=== PATIENT | male | born 1960 | race Caucasian/White ===

== ENCOUNTER → 2016-11-25 | Outpatient (CLI) | payer OTHER ==
[~2016-11-25] MED LIST: CALTRATE-600 W600 MG PO; DELTASONE DPS2.5 MG PO; IMMUNE PO; LASIX DPS20 MG PO; MELATONIN10 M2 PO; MICRO-K DPS10 MEQ PO; NEURONTIN DPS100 MG PO; NORCO 5-325 TA1 EACH PO; PLAQUENIL DPS200 MG PO; TURMERIC500 MG PO; TYLENOL DPS325 MG PO; VITAMIN D31000 UNIT PO; ZYLOPRIM-DPS300 MG PO; [UNRECOGNIZED DRUG - OTHER] PO
== END | disposition home or self-care (01) ==
LOC: RAD.S 09:32 → EDSTATUS 10:00
DX: C20 Malignant neoplasm of rectum (principal); N32.89 Other specified disorders of bladder; Z98.890 Other specified postprocedural states

== ENCOUNTER 2016-12-23 10:21 | Day surgery (SDC) | payer OTHER ==
[~2016-12-23] VITALS: Ht 177.8 cm; Wt 94.0 kg
--- NOTE | 2017-01-20 10:12 | OR ---
ADMIT: 12/23/2016 RM/LOC: [facility] MR#: [id number] [facility] [address] [place] [id number] [address]ES[address] [place] [address] Operative/Delivery Room Report SEX: M AGE: 56 : 1960 SURGERY DATE: 12/23/2016 SURGEON: Idris Hollis MD PREOPERATIVE DIAGNOSIS: Bladder calculi x3. POSTOPERATIVE DIAGNOSIS: Bladder calculi x3. PROCEDURE: Cystoscopy with laser lithotripsy of bladder calculi. ANESTHESIA: General. INDICATION: The patient is a pleasant white male, who has a history of elevated urinary residuals. He had a prolonged Roberto catheter. Recent cystoscopy demonstrated some bladder calculi, flat appeared to be calcifications associated with Roberto catheter. I need to have these removed. Risks and benefits have been discussed. Preoperative antibiotics were given. DESCRIPTION OF PROCEDURE: The patient was taken to OR #5, placed on the table in supine position. After adequate anesthesia, transferred to dorsal lithotomy position, prepped and draped in the usual fashion. A time-out was taken confirming patient name, date of , planned procedure, preoperative antibiotics and allergies. A 22-[place] cystoscope with 30-degree lens advanced to the level of bladder. The urethra and prostate were unremarkable. Upon entering the bladder, three bladder calculi which are flat and rather thin are noted within the bladder. A 400-micron holmium laser fiber with settings of 800 mJ and 8 Hz was then used to fragment the stones which fragmented very nicely. All stone fragments were evacuated from the bladder and sent for pathological analysis. On final inspection, there was no active bleeding. The ureteral orifice was visualized, in normal position. No residual stone fragments were noted. No ADMIT: 12/23/2016 RM/LOC: [facility] MR#: [id number] [address] [facility] [address] [place] [id number] [address]ES[address] [place] [address] Operative/Delivery Room Report SEX: M AGE: 56 : 1960 other mucosal lesions identified at this time. The bladder was decompressed. The scope was withdrawn. The patient was taken out of dorsal lithotomy position, extubated uneventfully, and transferred to recovery room in stable condition. DISPOSITION: The patient will be discharged home later on today. DISCHARGE MEDICATIONS: Include Omnicef 300 mg p.o. b.i.d. for the next 5 days and then restart trimethoprim antibiotic suppression. I will have the patient back in three months for followup urinalysis and residual check. Idris Hollis MD/ harman JOB #: [id number] CC: Idris Hollis, Attending Physician Kvng Marx, Family Physician
== END 2016-12-23 14:15 | disposition home or self-care (01) ==
LOC: SSS 10:21
PROC: 0TCB8ZZ Extirpation of Matter from Bladder, Via Natural or Artificial Opening Endoscopic (ICD-10-PCS; principal; 2016-12-23)
DX: N21.0 Calculus in bladder (principal); Z87.891 Personal history of nicotine dependence; Z98.890 Other specified postprocedural states; Z85.048 Personal history of other malignant neoplasm of rectum, rectosigmoid junction, and anus; Z79.899 Other long term (current) drug therapy